=== PATIENT | female | born 1995 | race Caucasian/White ===

== ENCOUNTER 2021-07-25 01:44 | Emergency (ER) | payer BC ==
[2021-07-25 01:58] VITALS: BP 132/61; PULSE 108
[2021-07-25] MEDS ORDERED: Amoxicillin/Clavulanate K 875-125 MG Tab PO ONE (02:01)
--- NOTE | 2021-07-25 02:06 | EDM.PDOC ---
ED HPI GENERAL MEDICAL PROBLEM - General Chief Complaint: Upper Extremity Injury/Pain Stated Complaint: SHORTNESS OF BREATH, LIGHTHEADED, RIGHT ARM NUMB Time Seen by Provider: 07/25/21 01:56 - History of Present Illness INITIAL COMMENTS - FREE TEXT/NARRATIVE: HISTORY AND PHYSICAL: History of present illness: This is a 26-year-old female who presents ER today secondary to tingling and numbness rating down her right arm x2 days. Patient reports that shortly prior to the symptoms starting she had a scratch by her cat with immediate bruising and discomfort to her right medial biceps region. Patient reports that she is been experiencing tingling and numbness intermittently since. Patient denies any recent fevers, shakes, chills, nausea, vomiting, diarrhea, dysuria, frequency or urgency. Patient reports that her tetanus status is up-to-date and rabies vaccination is up-to-date as well to for the cat. Patient denies any other neurological complaints. Review of systems: As per history of present illness and below otherwise all systems reviewed and negative. Past medical history: As per history of present illness and as reviewed below otherwise noncontributory. Surgical history: As per history of present illness and as reviewed below otherwise noncontributory. Social history: No reported history of drug abuse. Family history: As per history of present illness and as reviewed below otherwise noncontri butory. Physical exam: This patient was seen and evaluated during the 2019 SARS-CoV-2 novel coronavirus pandemic period. Community viral transmission is ongoing at time of this encounter and the emergency department is operating under pandemic response procedures. Constitutional: Patient is oriented to person, place, and time. Appears well- developed and well-nourished. No distress. HEENT: Moist mucous membranes Head: Normocephalic and atraumatic Eyes: Right eye exhibits no discharge. Left eye exhibits no discharge. No scleral icterus Neck: Normal range of motion. No tracheal deviation present. Cardiovascular: Normal rate and regular rhythm. Pulmonary: Effort normal, no respiratory distress. Abdominal: No distention Musculoskeletal: Normal range of motion Neurologic: Alert and oriented to person, place and time. Skin: Carney, warm and dry. Psychiatric: Normal mood and affect. Behavior is normal. Judgment and thought content normal. Nursing note and vital signs have been reviewed Patient's ER physical exam is significant for a 3 cm scratch on her right upper biceps with surrounding ecchymosis with mild erythema. There is no fluctuance or evidence of abscess or drainage. Neuro: A&Ox3. Cranial nerves II-XII grossly intact, 5/5 strength to bilateral upper and lower extremities, sensation intact to bilateral upper and lower extremities, no nystagmus, PERRLA, EOMI, normal speech, proprioception intact to bilateral lower extremities, normal finger to nose test, gait normal. Patient with good capillary refill. Fingertips warm to touch. Sensation is intact. Diagnostics: [] Therapeutics: [] Assessment and plan: 26-year-old female who presents ER today secondary to tingling sensation rating down her right upper extremity since that she has been scratched by her cat. I am concerned that there may be an early infection there although there is no evidence of overt abscess. Patient will get started on Augmentin 875 twice daily x10 days and instructed to follow-up with her doctor for reevaluation. Reassessment at the time of disposition demonstrates that the patient is in no acute distress. The patient has remained stable throughout the entire ED visit and is without objective evidence for acute process requiring urgent intervention or hospitalization. The patient is stable for discharge, counseling is provided as documented above, discussed symptomatic treatment and specific conditions for return. I have spoken with the patient/caregiver and discussed todays findings, in addition to providing specific details for the plan of care. Questions are answered and there is agreement with the plan. Definitive disposition and diagnosis as appropriate pending reevaluation and review of above. 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: - Infectious Disease History Infectious Disease History: Reports: Chicken Pox - Past Surgical History Female Surgical History: Reports: Section Social & Family History - Family History Family Medical History: No Pertinent Family History - Tobacco Use Tobacco Use Status *Q: Current Every Day Tobacco User Years of Tobacco use: 6 Packs/Tins Daily: 0.2 - Caffeine Use Caffeine Use: Reports: Coffee - Recreational Drug Use Recreational Drug Use: No Review of Systems - Review of Systems Review Of Systems: See Below ED EXAM, GENERAL - Physical Exam Exam: See Below Course - Vital Signs Last Recorded V/S: Last Vital Signs Temp 97.2 F 07/25/21 01:54 Pulse 108 H 07/25/21 01:54 Resp 18 07/25/21 01:54 BP 132/61 07/25/21 01:54 Pulse Ox 97 07/25/21 01:54 - Orders/Labs/Meds Meds: Medications Discontinued Medications Generic Name Dose Route Start Last Admin Trade Name Siria PRN Reason Stop Dose Admin Amoxicillin/Clavulanate Potassium 1 tab 07/25/21 02:01 Amoxicillin/Clavulanate K 875-125 Mg Tab PO 07/25/21 02:02 ONETIME ONE Departure - Departure Time of Disposition: 02:04 Disposition: Home, Self-Care 01 Condition: Good Clinical Impression: Paresthesia of right upper extremity, Cat scratch - Discharge Information Instructions: Paresthesia Additional Instructions: You were seen and evaluated in ER today secondary to numbness and tingling in your right upper extremity that is likely related to an injury that was sustained from a cat scratch. You will get started on Augmentin 875 mg to take twice a day for 10 days. Please make an appointment to follow-up with your [facility] doctor within the week for reevaluation. Please return to the ER if you develop any new or concerning symptoms. The following information is given to patients seen in the emergency department who are being discharged to home. This information is to outline your options for follow-up care. We provide all patients seen in our emergency department with a follow-up referral. The need for follow-up, as well as the timing and circumstances, are variable depending upon the specifics of your emergency department visit. If you don't have a primary care physician on staff, we will provide you with a referral. We always advise you to contact your personal physician following an emergency department visit to inform them of the circumstance of the visit and for follow-up with them and/or the need for any referrals to a consulting specialist. The emergency department will also refer you to a specialist when appropriate. This referral assures that you have the opportunity for follow-up care with a specialist. All of these measure are taken in an effort to provide you with optimal care, which includes your follow-up. Under all circumstances we always encourage you to contact your private physician who remains a resource for coordinating your care. When calling for follow-up care, please make the office aware that this follow-up is from your recent emergency room visit. If for any reason you are refused follow-up, please contact the [facility] Emergency Department at and asked to speak to the emergency department charge nurse. [facility] [address] [place] [id number] [facility] [address] [place] [id number] Sepsis Event Note (ED) - Evaluation Sepsis Screening Result: No Definite Risk - Focused Exam Vital Signs: Vital Signs Temp Pulse Resp BP Pulse Ox 07/25/21 01:54 97.2 F 108 H 18 132/61 97
== END 2021-07-25 02:11 | disposition home or self-care (01) ==
LOC: MW.ED 01:44
DX: S40.811A Abrasion of right upper arm, initial encounter (principal); R20.2 Paresthesia of skin; Z72.0 Tobacco use; W55.03XA Scratched by cat, initial encounter
CPT/HCPCS: 99283; A9270

== ENCOUNTER 2022-09-05 11:24 | Observation (INO) | payer SELFPAY ==
[2022-09-05] MEDS ORDERED: Sodium Chloride 0.9% 2.5 ML Syringe FLUSH PRN ×2 (12:13→12:22)
[2022-09-05] MEDS ORDERED: Sodium Chloride 0.9% 20 ML SDV IV PRN ×2 (12:13→12:22)
[2022-09-05] MEDS ORDERED: Sodium Chloride 0.9% 10 ML Syringe FLUSH PRN ×2 (12:13→12:22)
[2022-09-05] MEDS ORDERED: Magnesium Sulfate/Water 4 GM in Premix Bag 1 BAG IV ONE (12:13)
[2022-09-05] MEDS ORDERED: Calcium Gluconate 10% 1 GM/10 ML SDV IV PRN (12:13)
[2022-09-05] MEDS ORDERED: Lactated Ringers 1,000 ML IV SCH (12:15)
[2022-09-05] MEDS ORDERED: Betamethasone Acetate/Betamethasone Sod Phosphate 30 MG/5 ML MDV IM SCH (12:15)
[2022-09-05] MEDS ORDERED: Magnesium Sulfate/Water 20 GM/500 ML BAG IV SCH (12:15)
[2022-09-05] MEDS ORDERED: Butorphanol 1 MG/ML SDV IVPUSH PRN (12:22)
[2022-09-05] MEDS ORDERED: Ondansetron 4 MG/2 ML SDV IVPUSH PRN (12:22)
[2022-09-05] MEDS ORDERED: Ampicillin 2 GM in Sodium Chloride 0.9% 100 ML IV ONE (12:30)
[2022-09-05] MEDS ORDERED: Ampicillin 1 GM in Sodium Chloride 0.9% 50 ML IV SCH (17:00)
== END 2022-09-05 16:20 ==
LOC: MW.OBCHECK 11:24 → MW.OB 11:25 → MW.OBCHECK 12:20 → MW.OB 12:22
PROVIDERS: ADMIT Obstetrics & Gynecology; ATTEND Obstetrics & Gynecology
DX: O42.913 Preterm premature rupture of membranes, unspecified as to length of time between rupture and onset of labor, third trimester (principal); Z79.899 Other long term (current) drug therapy; Z20.822 Contact with and (suspected) exposure to COVID-19; Z3A.31 31 weeks gestation of pregnancy
CPT/HCPCS: 36415; 51702; 59025; 76815; 81003; 84112; 85027; 86850; 86900; 86901; 87635; 87653; 96365; 96368; 96372; 96375; G0378; J0290; J0702; J1364; J3475; J3490; J7050; J7120; U0002

== ENCOUNTER 2024-07-14 07:51 | Emergency (ER) | payer SELFPAY ==
[2024-07-14] MEDS ORDERED: Sodium Chloride 0.9% 10 ML Syringe FLUSH PRN (07:53)
[2024-07-14] MEDS ORDERED: Sodium Chloride 0.9% 2.5 ML Syringe FLUSH PRN (07:53)
[2024-07-14] MEDS: Ondansetron 4 MG/2 ML SDV IVPUSH ONE (08:45)
[2024-07-14 08:49] LABS: BASOPHILS ABSOLUTE AUTO 0.05 K/uL (0.00-0.20); BASOPHILS PERCENT AUTO 0.5 % (0.0-1.0); EOSINOPHILS ABSOLUTE AUTO 0.21 K/uL (0.00-0.45); HEMOGLOBIN 12.3 g/dL (12.0-16.0); IMMATURE GRAN ABSOLUTE AUTO 0.06 K/uL (0.00-0.05); IMMATURE GRAN PERCENT AUTO 0.6 % (0.0-0.4); LYMPHOCYTES ABSOLUTE AUTO 1.75 K/uL (1.00-4.80); MEAN CORPUSCULAR HEMOGLOBIN 32.3 pg (28.0-32.0); MEAN CORPUSCULAR HGB CONC 36.2 g/dL (32.0-36.0); MEAN CORPUSCULAR VOLUME 89.2 fL (83.0-99.0); MEAN PLATELET VOLUME 9.7 fL (9.4-12.3); MONOCYTES ABSOLUTE AUTO 0.78 K/uL (0.00-0.80); MONOCYTES PERCENT AUTO 7.6 % (0.0-8.0); NEUTROPHILS ABSOLUTE AUTO 7.46 K/uL (1.80-7.70); NEUTROPHILS PERCENT AUTO 72.3 % (41.0-71.0); PLATELET COUNT,PLT 271 K/uL (150-400); RED BLOOD CELL COUNT 3.81 M/uL (4.10-5.30); WHITE BLOOD CELL COUNT,WBC 10.31 K/uL (3.9-11.3)
[2024-07-14 09:06] LABS: APPEARANCE,URINE SLT CLOUDY; BILIRUBIN,URINE NEGATIVE (NEGATIVE); COLOR,URINE YELLOW; GLUCOSE,URINE NEGATIVE (NEGATIVE); KETONES,URINE NEGATIVE (NEGATIVE); LEUKOCYTE ESTERASE,URINE SMALL (NEGATIVE); NITRITE,URINE NEGATIVE (NEGATIVE); OCCULT BLOOD,URINE NEGATIVE (NEGATIVE); PH,URINE 7.5 (5.0-8.0); PROTEIN,URINE NEGATIVE (NEGATIVE); UROBILINOGEN,URINE 0.2 EU/dL (<2.0)
[2024-07-14 09:10] LABS: BACTERIA,URINE FEW (NEGATIVE); EPITHELIAL CELLS,URINE MODERATE (NONE-FEW); RBC,URINE 0-2 (0-2/HPF)
[2024-07-14 09:17] LABS: A/G RATIO 0.8 (0.9-1.6); ALBUMIN 3.2 g/dL (3.4-5.0); BILIRUBIN TOTAL 0.4 mg/dL (0.2-1.0); CALCIUM 9.2 mg/dL (8.5-10.1); CARBON DIOXIDE,CO2 25.8 mmol/L (21.0-32.0); CREATININE 0.5 mg/dL (0.6-1.0); EST CRCL DRUG DOSING (CG) 126.4 mL/min; POTASSIUM,K 3.9 mmol/L (3.5-5.1); PROTEIN TOTAL,TP 7.4 g/dL (6.4-8.2)
[2024-07-14] MEDS: Sodium Chloride 0.9% 1,000 ML IV STA (10:21)
[2024-07-14 11:18] VITALS: BP 112/78; PULSE 83
== END 2024-07-14 11:16 | disposition home or self-care (01) ==
LOC: MW.ED 07:51
DX: O99.891 Other specified diseases and conditions complicating pregnancy (principal); R11.0 Nausea; R10.10 Upper abdominal pain, unspecified; R82.71 Bacteriuria; Z3A.19 19 weeks gestation of pregnancy; Z75.8 Other problems related to medical facilities and other health care
CPT/HCPCS: 36415; 76805; 80053; 81001; 83690; 84703; 85025; 86900; 86901; 96374; 99284; J2405; J7030